=== PATIENT | male | born 1940 | race African-American/Black ===

== ENCOUNTER 2020-11-19 09:27 | Emergency (ER) | payer OTHER ==
[~2020-11-19] VITALS: Ht 175.3 cm; Wt 79.5 kg
[2020-11-19 10:19] LABS: EOSINOPHILS % (AUTO) 0.5 % (1.0-6.0); HEMOGLOBIN 15.7 g/dL (13.5-17.5); LYMPHOCYTES # (AUTO) 2.4 K/uL (1.0-4.8); LYMPHOCYTES % (AUTO) 33.4 % (22.0-44.0); MEAN CORPUSCULAR HEMOGLOBIN 31.3 pg (26.0-34.0); MEAN CORPUSCULAR HGB CONC 33.3 G/dL (31.0-37.0); MEAN CORPUSCULAR VOLUME 94 fL (80-100); MONOCYTES # (AUTO) 0.5 K/uL (0.1-1.0); MONOCYTES % (AUTO) 6.6 % (2.0-9.0); NEUTROPHILS # (AUTO) 4.2 K/uL (1.8-7.7); NEUTROPHILS % (AUTO) 58.5 % (40.0-70.0); PLATELET COUNT (AUTO) 235 K/uL (150-450); RED CELL DISTRIBUTION WIDTH 13.5 % (11.5-14.5)
[2020-11-19 10:24] LABS: GLUCOSE,POINT OF CARE 100 MG/DL (70-110)
[2020-11-19 10:30] LABS: ANION GAP 8 mmol/L (8-16); CALCIUM, TOTAL 9.8 mg/dL (8.8-10.5); CARBON DIOXIDE 29 mmol/L (22-29); CHLORIDE 105 mmol/L (98-107); CREATININE 0.98 mg/dL (0.60-1.30); GLOMERULAR FILTR. RATE CALC > 60 mL/min (>60); GLUCOSE,RANDOM 113 mg/dL (70-110); POTASSIUM 3.6 mmol/L (3.5-5.1); SODIUM SERUM 142 mmol/L (136-145); UREA NITROGEN, BLOOD 13 mg/dL (7-18)
[2020-11-19] MEDS ORDERED: LORazepam 2 MG/ML VIAL IVP ONE (10:30)
[2020-11-19] MEDS ORDERED: LevETIRAcetam 1,000 MG in DEXTROSE 5%-WATER 100 ML IV ONE (10:30)
[2020-11-19 10:36] LABS: ALANINE AMINOTRANSFERASE 20 U/L (12-78); ALBUMIN 3.9 g/dL (3.4-5.0); ALKALINE PHOSPHATASE 66 U/L (46-116); ASPARTATE AMINOTRANSFERASE 23 U/L (15-37); BILIRUBIN,TOTAL 0.7 mg/dL (0.1-1.0); TOTAL PROTEIN, SERUM 7.5 g/dL (6.4-8.2)
[2020-11-19 10:52] LABS: LIPASE 32 U/L (73-393)
[2020-11-19 12:03] LABS: COVID AG,FIA SOURCE NASOPHARYNGEAL
[2020-11-19] MEDS ORDERED: THIAMINE 100 MG/ML 2 ML VIAL IVP ONE (13:15)
[2020-11-19 15:15] VITALS: BP 108/64
== END 2020-11-19 16:03 | disposition designated cancer center or children's hospital (05) ==
LOC: EMS 10:00
DX: G40.909 Epilepsy, unspecified, not intractable, without status epilepticus (principal); F10.129 Alcohol abuse with intoxication, unspecified; Z20.822 Contact with and (suspected) exposure to COVID-19; Y90.9 Presence of alcohol in blood, level not specified
CPT/HCPCS: 36415; 70450; 71045; 80053; 82140; 82962; 83605; 83690; 83735; 83880; 84484; 85025; 87426; 93005; 96365; 96375; 99291; G0480; J0712; J2060; J3411; J7060

== ENCOUNTER 2021-01-23 09:47 | Emergency (ER) | payer OTHER ==
[~2021-01-23] VITALS: Ht 170.2 cm; Wt 70.0 kg
[2021-01-23] MEDS ORDERED: LORazepam 2 MG/ML VIAL ONE (10:10)
[2021-01-23] MEDS ORDERED: LORazepam 2 MG/ML VIAL IVP ONE (10:15)
[2021-01-23 10:30] LABS: BASOPHILS % (AUTO) 0.8 % (0.0-2.0); EOSINOPHILS % (AUTO) 0.5 % (1.0-6.0); HEMATOCRIT 49.6 % (41-53); HEMOGLOBIN 16.5 g/dL (13.5-17.5); LYMPHOCYTES # (AUTO) 1.5 K/uL (1.0-4.8); LYMPHOCYTES % (AUTO) 21.6 % (22.0-44.0); MEAN CORPUSCULAR HEMOGLOBIN 31.3 pg (26.0-34.0); MEAN CORPUSCULAR HGB CONC 33.2 G/dL (31.0-37.0); MEAN CORPUSCULAR VOLUME 94 fL (80-100); MONOCYTES # (AUTO) 0.4 K/uL (0.1-1.0); MONOCYTES % (AUTO) 5.2 % (2.0-9.0); NEUTROPHILS # (AUTO) 4.9 K/uL (1.8-7.7); NEUTROPHILS % (AUTO) 71.9 % (40.0-70.0); PLATELET COUNT (AUTO) 273 K/uL (150-450); RED BLOOD CELL COUNT(AUTO) 5.27 MIL/uL (4.50-5.90); RED CELL DISTRIBUTION WIDTH 13.9 % (11.5-14.5)
[2021-01-23 10:38] LABS: ANION GAP 6 mmol/L (8-16); CALCIUM, TOTAL 9.6 mg/dL (8.8-10.5); CARBON DIOXIDE 28 mmol/L (22-29); CHLORIDE 105 mmol/L (98-107); CREATININE 1.15 mg/dL (0.60-1.30); GLOMERULAR FILTR. RATE CALC > 60 mL/min (>60); GLUCOSE,RANDOM 108 mg/dL (70-110); POTASSIUM 3.9 mmol/L (3.5-5.1); SODIUM SERUM 139 mmol/L (136-145); UREA NITROGEN, BLOOD 11 mg/dL (7-18)
[2021-01-23 10:47] LABS: INR 1.1 (0.9-1.1); PROTHROMBIN TIME 11.5 SEC (9.4-11.6)
[2021-01-23 10:58] LABS: B-TYPE NATRIURETIC PEPTIDE 21 pg/mL (0-100)
[2021-01-23 11:03] LABS: ALANINE AMINOTRANSFERASE 20 U/L (12-78); ALKALINE PHOSPHATASE 72 U/L (46-116); ASPARTATE AMINOTRANSFERASE 21 U/L (15-37); BILIRUBIN,TOTAL 0.4 mg/dL (0.1-1.0); CREATINE KINASE, TOTAL ONLY 331 U/L (39-308); TOTAL PROTEIN, SERUM 7.4 g/dL (6.4-8.2)
[2021-01-23 11:08] LABS: AMPHET/METH SCREEN,URINE NEGATIVE (NEGATIVE); BARBITURATE SCREEN, URINE NEGATIVE (NEGATIVE); BENZODIAZEPINES SCREEN,URINE NEGATIVE (NEGATIVE); CANNABINOID SCREEN,URINE NEGATIVE (NEGATIVE); COCAINE SCREEN,URINE POSITIVE (NEGATIVE); METHADONE SCREEN, URINE NEGATIVE (NEGATIVE); OPIATE SCREEN,URINE NEGATIVE (NEGATIVE); PHENCYCLIDINE SCREEN,URINE NEGATIVE (NEGATIVE)
[2021-01-23 11:09] LABS: COVID AG,FIA SOURCE NASAL SWAB
[2021-01-23] MEDS ORDERED: ACETAMINOPHEN 325 MG TABLET PO PRN (11:30)
[2021-01-23] MEDS ORDERED: LORazepam 2 MG/ML VIAL IVP PRN (11:30)
[2021-01-23] MEDS ORDERED: SODIUM CHLORIDE 0.9% 1,000 ML IV SCH (11:30)
[2021-01-23] MEDS ORDERED: LevETIRAcetam 750 MG in DEXTROSE 5%-WATER 100 ML IV ONE (11:30)
[2021-01-23 12:09] VITALS: BP 137/84
[2021-01-23] MEDS ORDERED: LevETIRAcetam 250 MG in DEXTROSE 5%-WATER 100 ML IV ONE (13:30)
[2021-01-23] MEDS ORDERED: HEPARIN SODIUM,PORCINE 5,000 UNITS/ML VIAL SQ SCH (16:00)
[2021-01-23] MEDS ORDERED: DOCUSATE SODIUM 100 MG CAPSULE PO SCH (21:00)
[2021-01-23] MEDS ORDERED: LevETIRAcetam 500 MG TABLET PO SCH (21:00)
[2021-01-24] MEDS ORDERED: FAMOTIDINE 20 MG TABLET PO SCH (09:00)
[2021-01-24] MEDS ORDERED: MULTIVITAMINS WITH MINERALS, THERAPEUTIC TABLET PO SCH (09:00)
== END 2021-01-23 14:36 | disposition home or self-care (01) ==
LOC: EMS 09:50
DX: R56.9 Unspecified convulsions (principal); F17.210 Nicotine dependence, cigarettes, uncomplicated; F14.90 Cocaine use, unspecified, uncomplicated; Z20.822 Contact with and (suspected) exposure to COVID-19
CPT/HCPCS: 36415; 70450; 71045; 80053; 80307; 82550; 83880; 84484; 85025; 85610; 85730; 87426; 93005; 96361; 96374; 96375; 96376; 99285; G0480; J0712; J2060; J7030; J7060; G0482

== ENCOUNTER 2021-06-29 02:16 | Emergency (ER) | payer OTHER ==
[~2021-06-29] VITALS: Ht 180.3 cm; Wt 65.7 kg
[2021-06-29] MEDS ORDERED: SODIUM CHLORIDE 0.9% 1,000 ML IV ONE ×2 (02:30→03:30)
[2021-06-29] MEDS ORDERED: LevETIRAcetam 1,500 MG in DEXTROSE 5%-WATER 100 ML IV ONE (02:30)
[2021-06-29 02:49] LABS: GLUCOMETER DEV NAME(LOC) ERT.5; GLUCOSE,POINT OF CARE 171 MG/DL (70-110)
[2021-06-29 02:55] LABS: BASOPHILS % (AUTO) 0.5 % (0.0-2.0); HEMATOCRIT 49.2 % (41-53); HEMOGLOBIN 16.4 g/dL (13.5-17.5); LYMPHOCYTES # (AUTO) 1.5 K/uL (1.0-4.8); LYMPHOCYTES % (AUTO) 28.5 % (22.0-44.0); MEAN CORPUSCULAR HEMOGLOBIN 31.5 pg (26.0-34.0); MEAN CORPUSCULAR HGB CONC 33.3 G/dL (31.0-37.0); MEAN CORPUSCULAR VOLUME 95 fL (80-100); MONOCYTES # (AUTO) 0.3 K/uL (0.1-1.0); MONOCYTES % (AUTO) 4.9 % (2.0-9.0); NEUTROPHILS # (AUTO) 3.4 K/uL (1.8-7.7); NEUTROPHILS % (AUTO) 65.1 % (40.0-70.0); PLATELET COUNT (AUTO) 263 K/uL (150-450); RED BLOOD CELL COUNT(AUTO) 5.19 MIL/uL (4.50-5.90); RED CELL DISTRIBUTION WIDTH 13.8 % (11.5-14.5)
[2021-06-29 03:03] LABS: ANION GAP 10 mmol/L (8-16); CALCIUM, TOTAL 9.7 mg/dL (8.8-10.5); CARBON DIOXIDE 28 mmol/L (22-29); CHLORIDE 105 mmol/L (98-107); CREATININE 1.17 mg/dL (0.60-1.30); GLUCOSE,RANDOM 130 mg/dL (70-110); POTASSIUM 3.4 mmol/L (3.5-5.1); SODIUM SERUM 143 mmol/L (136-145); UREA NITROGEN, BLOOD 10 mg/dL (7-18)
[2021-06-29 03:09] LABS: GLOMERULAR FILTR. RATE CALC > 60 mL/min (>60)
[2021-06-29 03:15] LABS: B-TYPE NATRIURETIC PEPTIDE 8 pg/mL (0-100)
[2021-06-29 03:28] LABS: ALANINE AMINOTRANSFERASE 18 U/L (12-78); ALBUMIN 3.9 g/dL (3.4-5.0); ALKALINE PHOSPHATASE 72 U/L (46-116); ASPARTATE AMINOTRANSFERASE 15 U/L (15-37); BILIRUBIN,TOTAL 0.4 mg/dL (0.1-1.0); CREATINE KINASE, TOTAL ONLY 201 U/L (39-308); TOTAL PROTEIN, SERUM 7.8 g/dL (6.4-8.2)
[2021-06-29] MEDS ORDERED: POTASSIUM CHLORIDE 20 MEQ ER TABLET PO ONE (03:45)
[2021-06-29 04:29] LABS: INR 1.1 (0.9-1.1); PROTHROMBIN TIME 11.2 SEC (9.4-11.6)
[2021-06-29 05:40] VITALS: BP 116/65
== END 2021-06-29 06:00 | disposition home or self-care (01) ==
LOC: EMS 02:17
DX: G40.909 Epilepsy, unspecified, not intractable, without status epilepticus (principal); E87.2 Acidosis; F17.210 Nicotine dependence, cigarettes, uncomplicated; F14.90 Cocaine use, unspecified, uncomplicated
CPT/HCPCS: 36415; 71045; 80053; 82550; 82962; 83605; 83880; 84484; 85025; 85610; 85730; 93005; 96361; 96365; 99291; G0480; J0712; J7030; J7060

== ENCOUNTER 2021-07-03 18:06 | Emergency (ER) | payer OTHER ==
[~2021-07-03] VITALS: Ht 185.4 cm; Wt 8.2 kg
[2021-07-03] MEDS ORDERED: LEVE500T20 PO (18:30)
[2021-07-03] MEDS: LORazepam 2 MG/ML VIAL IVP ONE (18:39)
[2021-07-03] MEDS: LevETIRAcetam 1,500 MG in DEXTROSE 5%-WATER 100 ML IV ONE (18:51)
[2021-07-03 18:59] LABS: COVID AG,FIA SOURCE NASOPHARYNGEAL
[2021-07-03 19:01] LABS: BASOPHILS % (AUTO) 0.7 % (0.0-2.0); EOSINOPHILS % (AUTO) 0.6 % (1.0-6.0); HEMATOCRIT 49.2 % (41-53); HEMOGLOBIN 16.3 g/dL (13.5-17.5); LYMPHOCYTES # (AUTO) 1.5 K/uL (1.0-4.8); LYMPHOCYTES % (AUTO) 25.8 % (22.0-44.0); MEAN CORPUSCULAR HEMOGLOBIN 31.5 pg (26.0-34.0); MEAN CORPUSCULAR HGB CONC 33.2 G/dL (31.0-37.0); MEAN CORPUSCULAR VOLUME 95 fL (80-100); MONOCYTES # (AUTO) 0.3 K/uL (0.1-1.0); MONOCYTES % (AUTO) 4.4 % (2.0-9.0); NEUTROPHILS # (AUTO) 3.9 K/uL (1.8-7.7); NEUTROPHILS % (AUTO) 68.5 % (40.0-70.0); PLATELET COUNT (AUTO) 245 K/uL (150-450); RED BLOOD CELL COUNT(AUTO) 5.18 MIL/uL (4.50-5.90); RED CELL DISTRIBUTION WIDTH 13.6 % (11.5-14.5)
[2021-07-03 19:08] LABS: ANION GAP 8 mmol/L (8-16); CALCIUM, TOTAL 9.9 mg/dL (8.8-10.5); CARBON DIOXIDE 28 mmol/L (22-29); CHLORIDE 105 mmol/L (98-107); CREATININE 1.04 mg/dL (0.60-1.30); GLOMERULAR FILTR. RATE CALC > 60 mL/min (>60); GLUCOSE,RANDOM 117 mg/dL (70-110); POTASSIUM 3.7 mmol/L (3.5-5.1); SODIUM SERUM 141 mmol/L (136-145); UREA NITROGEN, BLOOD 13 mg/dL (7-18)
[2021-07-03 19:35] LABS: ALANINE AMINOTRANSFERASE 19 U/L (12-78); ALKALINE PHOSPHATASE 64 U/L (46-116); ASPARTATE AMINOTRANSFERASE 17 U/L (15-37); BILIRUBIN,TOTAL 0.6 mg/dL (0.1-1.0); CREATINE KINASE, TOTAL ONLY 224 U/L (39-308); FREE T4 (FREE THYROXINE) 0.96 ng/dL (0.76-1.46); THYROID STIMULATING HORMONE 0.91 uIU/mL (0.36-3.74); TOTAL PROTEIN, SERUM 7.8 g/dL (6.4-8.2)
[2021-07-03 22:28] VITALS: BP 145/67
== END 2021-07-03 23:16 | disposition short-term general hospital (02) ==
LOC: EMS 18:23
DX: G40.909 Epilepsy, unspecified, not intractable, without status epilepticus (principal); F19.10 Other psychoactive substance abuse, uncomplicated; F17.210 Nicotine dependence, cigarettes, uncomplicated; F14.90 Cocaine use, unspecified, uncomplicated; Z20.822 Contact with and (suspected) exposure to COVID-19; Z91.14 Patient's other noncompliance with medication regimen
CPT/HCPCS: 70450; 71045; 80053; 82550; 82962; 84439; 84443; 84484; 85025; 87426; 93005; 96374; 96375; 99291; G0480; J0712; J2060; J7060; G0482; 36415-L1; 36415-TC

== ENCOUNTER 2021-11-02 04:30 | Emergency (ER) | payer OTHER ==
[~2021-11-02] VITALS: Ht 170.2 cm; Wt 61.4 kg
[~2021-11-02 04:30] MED LIST: LEVE500T20 PO
[2021-11-02 05:00] LABS: BASOPHILS % (AUTO) 1.2 % (0.0-2.0); HEMATOCRIT 50.5 % (41-53); HEMOGLOBIN 17.3 g/dL (13.5-17.5); LYMPHOCYTES # (AUTO) 1.7 K/uL (1.0-4.8); MEAN CORPUSCULAR HEMOGLOBIN 31.4 pg (26.0-34.0); MEAN CORPUSCULAR HGB CONC 34.2 G/dL (31.0-37.0); MEAN CORPUSCULAR VOLUME 92 fL (80-100); MONOCYTES # (AUTO) 0.4 K/uL (0.1-1.0); MONOCYTES % (AUTO) 7.4 % (2.0-9.0); NEUTROPHILS # (AUTO) 2.6 K/uL (1.8-7.7); NEUTROPHILS % (AUTO) 54.4 % (40.0-70.0); PLATELET COUNT (AUTO) 264 K/uL (150-450); RED BLOOD CELL COUNT(AUTO) 5.51 MIL/uL (4.50-5.90); RED CELL DISTRIBUTION WIDTH 13.6 % (11.5-14.5)
[2021-11-02 05:09] LABS: ANION GAP 11 mmol/L (8-16); CALCIUM, TOTAL 9.8 mg/dL (8.8-10.5); CARBON DIOXIDE 25 mmol/L (22-29); CHLORIDE 104 mmol/L (98-107); CREATININE 1.01 mg/dL (0.60-1.30); GLUCOSE,RANDOM 112 mg/dL (70-110); POTASSIUM 3.5 mmol/L (3.5-5.1); SODIUM SERUM 140 mmol/L (136-145); UREA NITROGEN, BLOOD 16 mg/dL (7-18)
[2021-11-02 05:12] LABS: GLOMERULAR FILTR. RATE CALC > 60 mL/min (>60)
[2021-11-02 05:18] LABS: APPEARANCE,URINE CLEAR (CLEAR); BILIRUBIN,URINE NEGATIVE (NEGATIVE); GLUCOSE, URINE (UA) NEGATIVE (NEGATIVE); KETONES,URINE NEGATIVE (NEGATIVE); LEUKOCYTE ESTERASE ,URINE NEGATIVE (NEGATIVE); NITRATE,URINE NEGATIVE (NEGATIVE); OCCULT BLOOD,URINE SMALL (NEGATIVE); PROTEIN,URINE 100-200,SEE CONFIRM mg/dL (NEGATIVE); SPECIFIC GRAVITIY, URINE 1.023 (1.003-1.030); UROBILINOGEN,URINE <=1.0 mg/dL (<=1.0)
[2021-11-02 05:34] LABS: ALANINE AMINOTRANSFERASE 17 U/L (12-78); ALBUMIN 3.9 g/dL (3.4-5.0); ALKALINE PHOSPHATASE 73 U/L (46-116); ASPARTATE AMINOTRANSFERASE 18 U/L (15-37); BILIRUBIN,TOTAL 0.4 mg/dL (0.1-1.0); CREATINE KINASE, TOTAL ONLY 276 U/L (39-308); VALPROIC ACID 4 mcg/mL (50-100)
[2021-11-02 05:35] LABS: BACTERIA,URINE None Seen /HPF (None Seen); RBC,URINE 0-2 /HPF (0-2); WBC,URINE None Seen /HPF (0-5)
[2021-11-02 05:37] LABS: SULFOSALICYLIC ACID,URINE 1+ (Negative)
[2021-11-02 05:41] LABS: CARBAMAZEPINE (TEGRETOL) 0.1 mcg/mL (4.0-12.0); PHENYTOIN (DILANTIN) < 0.5 mcg/mL (10.0-20.0)
[2021-11-02] MEDS ORDERED: LORazepam 2 MG/ML VIAL IVP ONE (05:45)
[2021-11-02] MEDS ORDERED: LORazepam 2 MG/ML VIAL ONE (05:46)
[2021-11-02 05:56] LABS: AMPHET/METH SCREEN,URINE NEGATIVE (NEGATIVE); BARBITURATE SCREEN, URINE NEGATIVE (NEGATIVE); BENZODIAZEPINES SCREEN,URINE NEGATIVE (NEGATIVE); CANNABINOID SCREEN,URINE POSITIVE (NEGATIVE); COCAINE SCREEN,URINE POSITIVE (NEGATIVE); METHADONE SCREEN, URINE NEGATIVE (NEGATIVE); OPIATE SCREEN,URINE NEGATIVE (NEGATIVE)
[2021-11-02] MEDS ORDERED: LevETIRAcetam 1,000 MG in DEXTROSE 5%-WATER 100 ML IV ONE (06:00)
[2021-11-02 06:07] LABS: PHENCYCLIDINE SCREEN,URINE NEGATIVE (NEGATIVE)
[2021-11-02 16:55] VITALS: BP 135/84
== END 2021-11-02 16:57 | disposition home or self-care (01) ==
LOC: EMS 04:31
DX: G40.909 Epilepsy, unspecified, not intractable, without status epilepticus (principal); R41.82 Altered mental status, unspecified; F14.10 Cocaine abuse, uncomplicated; F17.210 Nicotine dependence, cigarettes, uncomplicated
CPT/HCPCS: 36415; 70450; 80053; 80156; 80164; 80185; 80307; 81001; 81003; 82550; 84484; 85025; 93005; 96374; 96375; 99291; G0480; J0712; J2060; J7060; 81002; 82962; 96365

== ENCOUNTER 2021-12-13 15:01 | Emergency (ER) | payer OTHER ==
[~2021-12-13] VITALS: Ht 180.3 cm; Wt 72.7 kg
[2021-12-13] MEDS ORDERED: LevETIRAcetam 500 MG TABLET PO ONE (16:00)
[2021-12-13] MEDS ORDERED: LORazepam 2 MG/ML VIAL ONE (16:14)
[2021-12-13] MEDS ORDERED: LORazepam 2 MG/ML VIAL IM ONE (16:15)
[2021-12-13 22:09] VITALS: BP 134/77
== END 2021-12-13 22:24 | disposition home or self-care (01) ==
LOC: EMS 15:01
DX: G40.909 Epilepsy, unspecified, not intractable, without status epilepticus (principal); N40.0 Benign prostatic hyperplasia without lower urinary tract symptoms; F17.210 Nicotine dependence, cigarettes, uncomplicated; F14.10 Cocaine abuse, uncomplicated; Z86.69 Personal history of other diseases of the nervous system and sense organs; Z98.890 Other specified postprocedural states
CPT/HCPCS: 96372; 99285; J2060

== ENCOUNTER 2022-06-17 12:40 | Emergency (ER) | payer OTHER ==
[~2022-06-17] VITALS: Ht 180.3 cm; Wt 72.7 kg
[2022-06-17 16:21] LABS: APPEARANCE,URINE CLEAR (CLEAR); BILIRUBIN,URINE NEGATIVE (NEGATIVE); GLUCOSE, URINE (UA) 70-100 mg/dL (NEGATIVE); KETONES,URINE NEGATIVE (NEGATIVE); LEUKOCYTE ESTERASE ,URINE TRACE (NEGATIVE); NITRATE,URINE NEGATIVE (NEGATIVE); OCCULT BLOOD,URINE TRACE (NEGATIVE); PROTEIN,URINE NEGATIVE (NEGATIVE); SPECIFIC GRAVITIY, URINE 1.012 (1.003-1.030); UROBILINOGEN,URINE <=1.0 mg/dL (<=1.0)
[2022-06-17 16:31] LABS: BACTERIA,URINE None Seen /HPF (None Seen); RBC,URINE 0-2 /HPF (0-2); SQUAMOUS EPITHELIAL CELL,UR Few /LPF (None Seen); WBC,URINE 0-2 /HPF (0-5)
[2022-06-17 17:08] VITALS: BP 132/74
== END 2022-06-17 17:40 | disposition home or self-care (01) ==
LOC: EMS 12:43
DX: R33.9 Retention of urine, unspecified (principal); N40.0 Benign prostatic hyperplasia without lower urinary tract symptoms; F17.210 Nicotine dependence, cigarettes, uncomplicated; Z86.69 Personal history of other diseases of the nervous system and sense organs; Z98.890 Other specified postprocedural states
CPT/HCPCS: 51702; 81001; 99284; Z7502

== ENCOUNTER 2022-06-25 12:32 | Emergency (ER) | payer OTHER ==
[~2022-06-25] VITALS: Ht 175.3 cm; Wt 61.4 kg
[2022-06-25 12:34] VITALS: BP 142/80
[2022-06-25 13:49] LABS: BASOPHILS % (AUTO) 1.4 % (0.0-2.0); HEMATOCRIT 42.1 % (41-53); HEMOGLOBIN 14.3 g/dL (13.5-17.5); LYMPHOCYTES # (AUTO) 1.6 K/uL (1.0-4.8); LYMPHOCYTES % (AUTO) 23.6 % (22.0-44.0); MEAN CORPUSCULAR HEMOGLOBIN 31.7 pg (26.0-34.0); MEAN CORPUSCULAR VOLUME 94 fL (80-100); MONOCYTES # (AUTO) 0.4 K/uL (0.1-1.0); MONOCYTES % (AUTO) 5.7 % (2.0-9.0); NEUTROPHILS # (AUTO) 4.5 K/uL (1.8-7.7); NEUTROPHILS % (AUTO) 67.3 % (40.0-70.0); PLATELET COUNT (AUTO) 408 K/uL (150-450); RED CELL DISTRIBUTION WIDTH 13.4 % (11.5-14.5)
[2022-06-25 14:00] LABS: ANION GAP 7 mmol/L (8-16); CALCIUM, TOTAL 9.3 mg/dL (8.8-10.5); CARBON DIOXIDE 30 mmol/L (22-29); CHLORIDE 105 mmol/L (98-107); CREATININE 0.96 mg/dL (0.60-1.30); GLUCOSE,RANDOM 66 mg/dL (70-110); POTASSIUM 3.6 mmol/L (3.5-5.1); SODIUM SERUM 142 mmol/L (136-145); UREA NITROGEN, BLOOD 12 mg/dL (7-18)
[2022-06-25 14:01] LABS: GLOMERULAR FILTR. RATE CALC > 60 mL/min (>60)
[2022-06-25] MEDS ORDERED: TAMS-1 PO (14:01)
[2022-06-25 14:08] LABS: ALANINE AMINOTRANSFERASE 18 U/L (12-78); ALBUMIN 3.2 g/dL (3.4-5.0); ALKALINE PHOSPHATASE 59 U/L (46-116); ASPARTATE AMINOTRANSFERASE 16 U/L (15-37); BILIRUBIN,TOTAL 0.2 mg/dL (0.1-1.0); TOTAL PROTEIN, SERUM 7.2 g/dL (6.4-8.2)
== END 2022-06-25 14:18 | disposition home or self-care (01) ==
LOC: EMS 12:59
DX: T83.098A Other mechanical complication of other urinary catheter, initial encounter (principal); R33.9 Retention of urine, unspecified; R56.9 Unspecified convulsions; F17.210 Nicotine dependence, cigarettes, uncomplicated; Y84.6 Urinary catheterization as the cause of abnormal reaction of the patient, or of later complication, without mention of misadventure at the time of the procedure
CPT/HCPCS: 80053; 85025; 99283

== ENCOUNTER 2022-06-29 11:01 | Inpatient (IN) | payer OTHER ==
[~2022-06-29] VITALS: Ht 177.8 cm; Wt 81.8 kg
[~2022-06-29 11:01] MED LIST changes: +TAMS-1 PO
[2022-06-29] MEDS ORDERED: SODIUM CHLORIDE 0.9% 1,000 ML ONE (11:10)
[2022-06-29] MEDS ORDERED: DEXTROSE 50%-WATER 25 GM/50 ML SYRINGE IVP ONE ×3 (11:10→19:00)
[2022-06-29] MEDS ORDERED: ACETAMINOPHEN 1000 MG/ISO-OSM 100 ML IV ONE (11:15)
[2022-06-29] MEDS ORDERED: SODIUM CHLORIDE 0.9% 2,450 ML IV ONE (11:15)
[2022-06-29] MEDS ORDERED: 0.9% SODIUM CHLORIDE 10 ML SYRINGE IVP PRN (11:15)
[2022-06-29 11:48] LABS: COVID AG,FIA SOURCE NASAL SWAB
[2022-06-29 12:01] LABS: ANION GAP 16 mmol/L (8-16); CALCIUM, TOTAL 8.7 mg/dL (8.8-10.5); CARBON DIOXIDE 20 mmol/L (22-29); CHLORIDE 99 mmol/L (98-107); CREATININE 6.26 mg/dL (0.60-1.30); GLUCOSE,RANDOM 58 mg/dL (70-110); POTASSIUM 5.3 mmol/L (3.5-5.1); SODIUM SERUM 135 mmol/L (136-145); UREA NITROGEN, BLOOD 56 mg/dL (7-18)
[2022-06-29 12:02] LABS: GLOMERULAR FILTR. RATE CALC 10 mL/min (>60)
[2022-06-29 12:10] LABS: EOSINOPHILS % (AUTO) 0.2 % (1.0-6.0); HEMATOCRIT 38.5 % (41-53); HEMOGLOBIN 12.5 g/dL (13.5-17.5); LYMPHOCYTES # (AUTO) 0.4 K/uL (1.0-4.8); LYMPHOCYTES % (AUTO) 2.2 % (22.0-44.0); MEAN CORPUSCULAR HEMOGLOBIN 30.6 pg (26.0-34.0); MEAN CORPUSCULAR HGB CONC 32.5 G/dL (31.0-37.0); MEAN CORPUSCULAR VOLUME 94 fL (80-100); MONOCYTES # (AUTO) 0.2 K/uL (0.1-1.0); MONOCYTES % (AUTO) 0.8 % (2.0-9.0); NEUTROPHILS # (AUTO) 19.6 K/uL (1.8-7.7); PLATELET COUNT (AUTO) 117 K/uL (150-450); RED BLOOD CELL COUNT(AUTO) 4.09 MIL/uL (4.50-5.90); RED CELL DISTRIBUTION WIDTH 14.1 % (11.5-14.5)
[2022-06-29 12:12] LABS: LACTIC ACID 6.2 mmol/L (0.4-2.0)
[2022-06-29 12:13] LABS: NEUTROPHILS % (AUTO) 96.8 % (40.0-70.0)
[2022-06-29] MEDS ORDERED: AZITHROMYCIN 500 MG/NS 250 ML IV ONE (12:15)
[2022-06-29] MEDS ORDERED: CefTRIAXone 1 GM/DEXTROSE 50 ML IV ONE (12:15)
[2022-06-29 12:19] LABS: ALANINE AMINOTRANSFERASE 61 U/L (12-78); ALBUMIN 2.8 g/dL (3.4-5.0); ALKALINE PHOSPHATASE 80 U/L (46-116); ASPARTATE AMINOTRANSFERASE 185 U/L (15-37); BILIRUBIN,TOTAL 0.6 mg/dL (0.1-1.0); CREATINE KINASE, TOTAL ONLY 6385 U/L (39-308); TOTAL PROTEIN, SERUM 6.8 g/dL (6.4-8.2)
[2022-06-29 12:23] LABS: D-DIMER 10.76 mg/L FEU (0.00-0.50); INR 1.9 (0.9-1.1); PROTHROMBIN TIME 19.9 SEC (9.4-11.6)
[2022-06-29 12:30] LABS: B-TYPE NATRIURETIC PEPTIDE 1880 pg/mL (0-100)
[2022-06-29 12:31] LABS: INFLUENZA TYPE A NEGATIVE FOR TYPE A (NEGATIVE); INFLUENZA TYPE B NEGATIVE FOR TYPE B (NEGATIVE)
[2022-06-29] MEDS ORDERED: NOREPINEPHRINE 8 MG/D5%-WATER 250 ML IV ONE (13:28)
[2022-06-29] MEDS ORDERED: NOREPINEPHRINE 8 MG/D5%-WATER 250 ML IV PRN ×2 (13:30→14:00)
[2022-06-29] MEDS ORDERED: HYDROCODONE/ACETAMINOPHEN 5-325 MG TABLET PO PRN (14:00)
[2022-06-29] MEDS ORDERED: ACETAMINOPHEN 325 MG TABLET PO PRN (14:00)
[2022-06-29] MEDS ORDERED: MORPHINE SULFATE 2 MG/ML SYRINGE IVP PRN (14:00)
[2022-06-29] MEDS ORDERED: ONDANSETRON HCL 4 MG/2 ML VIAL IVP PRN (14:00)
[2022-06-29] MEDS ORDERED: MAGNESIUM HYDROXIDE SUSPENSION 30 ML UDCUP PO PRN (14:00)
[2022-06-29] MEDS ORDERED: ZOLPIDEM TARTRATE 5 MG TABLET PO PRN (14:00)
[2022-06-29] MEDS ORDERED: BISACODYL 10 MG RECTAL RECTAL SUPPOSITORY PR PRN (14:00)
[2022-06-29 14:32] LABS: APPEARANCE,URINE TURBID (CLEAR); BILIRUBIN,URINE NEGATIVE (NEGATIVE); GLUCOSE, URINE (UA) NEGATIVE (NEGATIVE); KETONES,URINE NEGATIVE (NEGATIVE); LEUKOCYTE ESTERASE ,URINE LARGE (NEGATIVE); NITRATE,URINE NEGATIVE (NEGATIVE); OCCULT BLOOD,URINE LARGE (NEGATIVE); PH,URINE 7.5 (5.0-8.0); PROTEIN,URINE 100-200,SEE CONFIRM mg/dL (NEGATIVE); SPECIFIC GRAVITIY, URINE 1.008 (1.003-1.030); UROBILINOGEN,URINE <=1.0 mg/dL (<=1.0)
[2022-06-29 14:53] LABS: RBC,URINE Full Field /HPF (0-2); SULFOSALICYLIC ACID,URINE 4+ (Negative)
[2022-06-29 14:54] LABS: BACTERIA,URINE Moderate /HPF (None Seen); SQUAMOUS EPITHELIAL CELL,UR None Seen /LPF (None Seen); WBC,URINE 51-100 /HPF (0-5)
[2022-06-29] MEDS ORDERED: SODIUM BICARBONATE 75 MEQ in DEXTROSE 5%-0.45% SODIUM CHL 1,000 ML IV SCH (15:00)
[2022-06-29] MEDS: LevETIRAcetam 500 MG in DEXTROSE 5%-WATER 100 ML IV SCH (15:40)
[2022-06-29] MEDS: HEPARIN SODIUM,PORCINE 5,000 UNITS/ML VIAL SQ SCH (16:10)
[2022-06-29 18:56] LABS: GLUCOSE,POINT OF CARE 51 MG/DL (70-110)
[2022-06-29] MEDS ORDERED: SODIUM CHLORIDE 77 MEQ in DEXTROSE 10%-WATER 1,000 ML IV SCH (19:30)
[2022-06-29] MEDS ORDERED: PIPERACILLIN SODIUM/TAZOBACTAM 2.25 GM in DEXTROSE 5%-WATER 50 ML IV SCH ×2 (20:00→22:00)
[2022-06-29 20:26] LABS: GLUCOSE,POINT OF CARE 96 MG/DL (70-110)
[2022-06-29 21:00] VITALS: BP 114/68
[2022-06-29] MEDS ORDERED: DOCUSATE SODIUM 100 MG CAPSULE PO SCH (21:00)
[2022-06-30] VITALS: BP 92/61
[2022-06-30] MEDS: HEPARIN SODIUM,PORCINE 5,000 UNITS/ML VIAL SQ SCH (00:37)
[2022-06-30] MEDS ORDERED: DEXTROSE 50%-WATER 25 GM/50 ML SYRINGE IVP ONE (01:15)
[2022-06-30] MEDS: LevETIRAcetam 500 MG in DEXTROSE 5%-WATER 100 ML IV SCH (03:38)
[2022-06-30] MEDS ORDERED: EPINEPHrine 1:10,000 [1 MG/10 ML] SYRINGE ONE ×3 (03:55→04:04)
[2022-06-30 03:56] LABS: GLUCOSE,POINT OF CARE 103 MG/DL (70-110)
[2022-06-30 03:56] LABS: GLUCOSE,POINT OF CARE 41 MG/DL (70-110)
[2022-06-30 05:51] LABS: GLUCOSE,POINT OF CARE 94 MG/DL (70-110)
[2022-06-30] MEDS ORDERED: PANTOPRAZOLE SODIUM 40 MG DR TABLET PO SCH (09:00)
== END 2022-06-30 04:05 | DRG 871 ==
LOC: EMS 11:03 → ICU 18:33
PROVIDERS: ADMIT Internal Medicine; ATTEND Internal Medicine
PROC: 06HY33Z Insertion of Infusion Device into Lower Vein, Percutaneous Approach (ICD-10-PCS; principal; 2022-06-29)
PROC: B54MZZA Ultrasonography of Right Upper Extremity Veins, Guidance (ICD-10-PCS; 2022-06-29)
PROC: 5A12012 Performance of Cardiac Output, Single, Manual (ICD-10-PCS; 2022-06-29)
DX: A41.9 Sepsis, unspecified organism (principal); R65.21 Severe sepsis with septic shock; N13.6 Pyonephrosis; N17.9 Acute kidney failure, unspecified; E87.1 Hypo-osmolality and hyponatremia; T83.091A Other mechanical complication of indwelling urethral catheter, initial encounter; D69.6 Thrombocytopenia, unspecified; E87.5 Hyperkalemia; N40.1 Benign prostatic hyperplasia with lower urinary tract symptoms; F17.210 Nicotine dependence, cigarettes, uncomplicated; I10 Essential (primary) hypertension; J44.9 Chronic obstructive pulmonary disease, unspecified; G40.909 Epilepsy, unspecified, not intractable, without status epilepticus; E16.2 Hypoglycemia, unspecified; I46.9 Cardiac arrest, cause unspecified; I25.10 Atherosclerotic heart disease of native coronary artery without angina pectoris; Z20.822 Contact with and (suspected) exposure to COVID-19; R77.8 Other specified abnormalities of plasma proteins; Y73.8 Miscellaneous gastroenterology and urology devices associated with adverse incidents, not elsewhere classified; Y92.89 Other specified places as the place of occurrence of the external cause
CPT/HCPCS: 36556; 51702; 70450; 71045; 71250; 72192; 74150; 80053; 81001; 81002; 82550; 82962; 83605; 83880; 84145; 84484; 85025; 85379; 85610; 85730; 87040; 87077; 87081; 87086; 87205; 87804; 92950; 93005; 93306; 99291; G0378; G0480; J0131; J0171; J0456; J0696; J0712; J1644; J2543; J3490; J7030; J7060; J7131; Q9967; 36415-L1; 36415-TC